=== PATIENT | male | born 1960 | race Caucasian/White ===

== ENCOUNTER 2019-08-07 08:43 | Emergency (ER) | payer OTHER, SELFPAY ==
[2019-08-07 08:46] VITALS: BP 126/79; PULSE 63; RESP 20; TEMP 36.6; O2SAT 94; BMI 27.1
--- NOTE | 2019-08-07 08:50 | XRR_ITS ---
PROCEDURE INFORMATION: Exam: XR Chest, 2 Views Exam date and time: 08/07/2019 9:05 AM Age: 59 years old Clinical indication: Cough; Additional info: Cough since Saturday TECHNIQUE: Imaging protocol: XR of the chest Views: 2 views. COMPARISON: CR Chest 1 [place] [id number] 02/16/2017 6:19 PM FINDINGS: Lungs: Unremarkable. No consolidation. Pleural space: Unremarkable. No pleural effusion. No pneumothorax. Heart/Mediastinum: Unremarkable. No cardiomegaly. Bones/joints: Unremarkable. XR/XR chest 2V* [id number] IMPRESSION: No acute findings.
--- NOTE | 2019-08-07 08:50 | W.ED.URI ---
HPI - URI/Sore Throat General: Chief Complaint: Shortness of Breath/Dyspnea Stated Complaint: possible pneumonia Time Seen by Provider: 08/07/19 08:47 Source: patient Mode of arrival: ambulatory Limitations: no limitations History of Present Illness: HPI Narrative: Patient comes in today with complaints of cough and congestion for 5 to 6 days. Patient states last Saturday he started coughing and having some chest congestion. Patient reports that this has not improved and he is come in for further evaluation and treatment. Patient does have a history of a heart attack about 3 years ago which is recovered well and has been doing good since then. Patient does have stents in place. Patient used to smoke about 15 years ago. Patient denies any routine medications. Patient appears mildly unwell. Patient appears in no pain. MD elicited complaint: cough Review of Systems General: Reports: 10 or more systems reviewed and unremarkable except in HPI and below Resp: Reports: non-productive cough PFSH ED PFSH: Social History Smoking and tobacco status: former smoker Physical Exam Const: COMMON NORMALS: no apparent distress and oriented x3 GENERAL APPEARANCE: cooperative HENMT: COMMON NORMALS: normocephalic, external ears normal, EAC's normal, TM's normal bilaterally and external nose normal HEAD & SCALP: normal to inspection and normocephalic FACE & SINUS: normal facial exam NOSE: external nose normal GENERAL EAR: hearing not grossly impaired EXTERNAL EAR: Yes external ears normal EXTERNAL AUDITORY CANAL: EAC's normal TYMPANIC MEMBRANE: TM's normal bilaterally MOUTH: oral and palatal mucosa normal THROAT: posterior oropharynx abnormal erythema Eye: COMMON NORMALS: PERRL and EOMs intact bilaterally PUPIL: Yes PERRL Neck/C-Spine: COMMON NORMALS: full ROM and no lymphadenopathy Lymph: LYMPHATIC: no lymphedema noted Chest: COMMONS NORMALS: inspection of chest normal and palpation of chest normal Resp: COMMON NORMALS: normal respiratory effort AUSCULTATION: rhonchi Cardio: COMMON NORMALS: regular rate and regular rhythm RATE: regular rate RHYTHM: regular rhythm GI: COMMON NORMALS: normal to inspection, nondistended, normoactive bowel sounds and non-tender : COMMON NORMALS: Yes no CVA tenderness BLADDER/KIDNEY EXAM: Yes no CVA tenderness Back/Pelvis: COMMON NORMALS: no CVA tenderness and thoracic and lumbar spine normal to inspection Extremity: COMMON NORMALS: normal to inspection GENERAL: No edema Neuro: COMMON NORMALS: oriented x3, moves all extremities and no focal motor deficits Psych: COMMON NORMALS: mental status grossly normal and cooperative Skin: COMMON NORMALS: no rashes or lesions noted GENERAL SKIN EXAM: no rashes or lesions noted Course Vital Signs: Vital signs: Vital Signs Temperature 97.8 F 08/07/19 08:52 Pulse Rate 55 L 08/07/19 09:16 Respiratory Rate 16 08/07/19 09:15 Blood Pressure 126/79 08/07/19 08:52 Pulse Oximetry 96 08/07/19 09:15 MDM - URI/Sore Throat MDM Narrative: Medical decision making narrative: Patient comes in today with complaints of cough and congestion for about 6 days now. Exam notes some rhonchi in the lung mendoza good air movement to the bases though. Skin is warm and dry color is pink. Vital signs are normal. Differential diagnosis includes bronchitis, upper respiratory infection, influenza, pneumonia. Chest x-ray notes some patchy infiltrate in the right middle lobe. Influenza test was negative. Patient was given a nebulizer treatment without much improvement in overall symptoms. Patient was injected with Rocephin 1 g and 10 mg of dexamethasone. Encourage patient to drink plenty of fluids. Reviewed antibiotic treatment. And medication for cough. Also recommended albuterol inhaler as needed for shortness of breath and wheezing. Recommend return to the ER for worsening signs and symptoms. Patient and spouse both report understanding agreed to plan. Lab Data: Labs: Lab Results 08/07/19 Range/Units 08:50 Influenza Type A A g Negative (Negative) POC Influenza B Ag Negative (Negative) Discharge Plan Discharge Patient Disposition: Home, Self-Care Clinical Impression: Pneumonia Qualifiers: Pneumonia type: due to unspecified organism Laterality: right Lung location: middle lobe of lung Qualified Code(s): J18.9 - Pneumonia, unspecified organism Condition: Stable Prescriptions: New doxycycline hyclate 100 mg capsule 100 mg PO BID 10 Days Qty: 20 RF: 0 promethazine-DM 6.25-15 mg/5 mL syrup 5 ml PO Q6H PRN (Reason: cough) Qty: 120 RF: 0 albuterol sulfate 90 mcg/actuation HFA aerosol inhaler 2 inh INHALATION Q4H PRN (Reason: shortness of breath or wheezing) Qty: 8.5 RF: 0 No Action Aspir-81 81 mg Tablet,Delayed Release (Dr/Ec) 81 mg PO DAILY RF: 0 Discharge Orders: Discharge Order (Routine); Ordered 08/07/19 Ordered By: Dayron Palacios Discharge Diet: Usual diet Discharge Activity: Increase activity as tolerated Patient Instructions: Pneumonia (ED) Activity Restrictions/Additional Instructions: Drink plenty of water Medications as directed Follow-up with primary care in three days Return to ER for increased shortness of breath or new concerns Coding Level of Care Code ED Utility Super[employer] Exam Comprehensive
[2019-08-07 08:52] VITALS: BP 126/79; PULSE 67; RESP 15; TEMP 36.6; O2SAT 97
[2019-08-07 08:54] VITALS: RESP 16
[2019-08-07] MEDS: ipratropium-albuterol 3 mL Neb INHALATION (09:13)
[2019-08-07 09:15] VITALS: PULSE 61; RESP 16; O2SAT 96
[2019-08-07 09:16] VITALS: PULSE 55
[2019-08-07 09:25] LABS: Influenza A by IFA Negative (Negative); Influenza B by IFA Negative (Negative)
[2019-08-07] MEDS: dexamethasone 10 mg/mL INJ IM (09:52)
[2019-08-07] MEDS: cefTRIAXone 1,000 mg SDV 1000 MG IM (09:53)
[2019-08-07 10:11] VITALS: BP 133/86; PULSE 79; RESP 16; O2SAT 96
== END 2019-08-07 10:11 | disposition home or self-care (01) ==
PROVIDERS: Emergency Provider Nurse Practitioner Family
DX: J18.9 Pneumonia, unspecified organism (principal); I25.2 Old myocardial infarction; Z87.891 Personal history of nicotine dependence; Z95.5 Presence of coronary angioplasty implant and graft
CPT/HCPCS: 71046; 87804; 94640; 96372; 96375; 99281; 99283; J0696; J1100

== ENCOUNTER → 2024-02-18 07:05 | Outpatient (BNVA) | payer OTHER, SELFPAY | PROVIDERS: PCP Nurse Practitioner Family; Visit Provider Nurse Practitioner Family | DX: R03.0 Elevated blood-pressure reading, without diagnosis of hypertension (principal); I25.2 Old myocardial infarction | CPT/HCPCS: 80053; 80061; 83036; 84443; 85025 ==

== ENCOUNTER → 2024-09-01 09:43 | Outpatient (BNVA) | payer OTHER, SELFPAY | PROVIDERS: PCP Family Medicine; Visit Provider Family Medicine | DX: I25.10 Atherosclerotic heart disease of native coronary artery without angina pectoris (principal) | CPT/HCPCS: 80053; 80061; G0103 ==

== ENCOUNTER 2024-09-24 05:54 | Day surgery (SDC) | payer OTHER, SELFPAY ==
[2024-09-24 06:07] VITALS: BP 118/75; PULSE 53; RESP 16; TEMP 36.1; O2SAT 97; BMI 26.6
--- NOTE | 2024-09-24 06:07 | W.PM.OPSUD ---
Surgery/Procedure H&P Update DATE OF PROCEDURE: September 24, 2024 DATE H&P PERFORMED: 09/09/24 H&P UPDATE INFORMATION: I have reviewed H&P completed within last 30 days, I have examined patient prior to procedure, No changes to prior documentation, Changes to prior documentation as noted here and Risks and benefits of the procedure reviewed PLANNED PROCEDURE: Operation Date: 09/24/24 07:00 Proposed Procedures p Colonoscopy 53271 G0105 Z12.11(Not Applicable) - Leon Bird MD
[2024-09-24] MEDS: sodium chloride 0.9% 1,000 ML 15 ML IV (06:21)
--- NOTE | 2024-09-24 06:42 | ANES.PREANE2 ---
Pre-Anesthetic Assessment Height/Weight: Height 1.83 m Weight 88.904 kg Temp Pulse Resp BP Pulse Ox O2 Del Method 97.0 F L 53 L 16 118/75 97 Room Air 09/24/24 06:07 09/24/24 06:07 09/24/24 06:07 09/24/24 06:07 09/24/24 06:07 09/24/24 06:07 Preop Diagnosis: screening Operation Date: 09/24/24 07:00 Proposed Procedures p Colonoscopy 12236 G0105 Z12.11(Not Applicable) - Leon Bird MD Familial anesthetic complications: none Was Beta Keyana taken within 24 hours: N/A Was Clonidine taken within 24 hours: N/A Last intake: Intake Last Liquid Date 09/23/24 Last Liquid Time 20:00 Last Solid Date 09/22/24 Last Solid Time 19:00 Social Alcohol (6-8 beers per week per patient) and No tobacco Airway Submandibular: within normal limits Cervical ROM: within normal limits Mallampati: Class III Dentition: full Pulmonary None reported CV/HEM Coronary Artery Disease (stent x2 2014) and Hypertension Patient denies CP or SOB 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 None reported Hepatic None reported GI None reported Metabolic None reported Musc/skel None reported Neuropsych None reported Anesthetic Plan ASA status: 3 Anesthesia: MAC Other: K+ 5.9 on labs 1 month prior will redraw. Medications/Allergies Home Medications ?Medication ?Instructions ?Recorded ?Confirmed ?Last Taken ?Type atorvastatin 40 mg tablet 40 mg PO .q hs #90 tabs 09/02/24 09/21/24 09/21/24 Rx Allergies Allergy/AdvReac Type Severity Reaction Status Date / Time No Known Allergies Allergy Verified 09/21/24 09:15 Current Medications Generic Name Dose Route Start Last Admin Trade Name Freq PRN Reason Stop Dose Admin Sodium Chloride 1,000 mls @ 15 mls/hr 09/24/24 06:07 09/24/24 06:21 Sodium Chloride 0.9% IV 09/25/24 06:06 15 mls/hr .Q24H PRN Administration COLONOSCOPY FLUIDS PFSH Anesthesia Medical History Old [place] (myocardial infarction) stent x 2 Elevated blood pressure reading Surgical History Hx of appendectomy Family History Mother Colon cancer Breast cancer Diabetes unsure of type one or type two Father , Unsure of dads medical history. No problems noted. Social History Smoking and tobacco/nicotine status: never used tobacco/nicotine Data Anesthesia Cardiac Studies: No Data to Display
[2024-09-24 07:20] LABS: Anion Gap 16.5 (5-19); Blood Urea Nitrogen 12 mg/dL (8-23); Calcium 9.1 mg/dL (8.5-10.5); Carbon Dioxide 24 mmol/L (22-29); Chloride 106 mmol/L (98-107); Creatinine Clr Calc Pharmacy 111.2063; Glucose 101 mg/dL (65-115); Osmolality Calculated 294 mOsm/kg (285-295); Potassium 4.5 mmol/L (3.5-5.1); Sodium 142 mmol/L (136-145)
[2024-09-24 07:48] VITALS: BP 106/72; PULSE 60; RESP 17; TEMP 36.1; O2SAT 95
[2024-09-24 07:58] VITALS: BP 111/80; PULSE 81; RESP 18; O2SAT 95
--- NOTE | 2024-09-24 12:49 | ANE.PACU2 ---
Inpatient post-anesthesia follow up: Airway intact: Yes Vital signs: Temperature 97.0 F Pulse Rate 81 Respiratory Rate 18 Blood Pressure 111/80 Pulse Oximetry 95 Oxygen Delivery Me thod Room Air Oxygen Flow Rate Fraction of Inspir ed Oxygen Hydration adequate: Yes Nausea and vomiting: No Pain level: 2 Mental status: Baseline
== END 2024-09-24 08:23 | disposition home or self-care (01) ==
PROVIDERS: Anesthesiology; PCP Family Medicine; Visit Provider Surgery
PROC: 0DJD8ZZ Inspection of Lower Intestinal Tract, Via Natural or Artificial Opening Endoscopic (ICD-10-PCS; CPT 45378; principal; 2024-09-24 07:00)
DX: Z12.11 Encounter for screening for malignant neoplasm of colon (principal); K51.40 Inflammatory polyps of colon without complications; K62.1 Rectal polyp; K57.30 Diverticulosis of large intestine without perforation or abscess without bleeding; K64.8 Other hemorrhoids; I25.10 Atherosclerotic heart disease of native coronary artery without angina pectoris; Z95.5 Presence of coronary angioplasty implant and graft; I10 Essential (primary) hypertension; I25.2 Old myocardial infarction; Z80.0 Family history of malignant neoplasm of digestive organs
CPT/HCPCS: 45380; 80048; 88305; J2704; J3490; J7030